=== PATIENT | female | born 1970 | race American Indian/Alaskan Native ===

== ENCOUNTER 2016-11-03 13:13 | Inpatient (IN) | payer OTHER ==
--- NOTE | 2016-11-03 16:25 | Consultation ---
History of Present Illness Consult date: 11/03/16 Requesting physician: JAYLEN CHRISTIAN Consult reason: other (pulmonary embolism) History of present illness: The patient is a 46 year old female with a history of hypertension who was referred for direct admission after chest CT this afternoon revealed PE. She states that she underwent a hysterectomy for fibroids 10/07/16. She went to her regulatory affairs coordinator's office today for her follow up appointment and reported that she had been experiencing shortness of breath on exertion for the past one week and well as right sided back pain upon deep inspiration. She was sent to [facility] for a chest CT which revealed PE. She denies any chest pain, palpitations or leg swelling. She states that since surgery she has been limited to the second floor of her house but that she does walk around upstairs regularly. No previous history of known family history of blood clots. Past History Past Medical History: hypertension Past Surgical History: hysterectomy (10/07/16), Other (foot surgery) Social history: . denies: smoking, alcohol abuse, prescription drug abuse Family history: no significant family history Medications and Allergies Allergies Allergy/AdvReac Type Severity Reaction Status Date / Time No Known Allergies Allergy Unverified 09/28/16 17:02 Home Medications Medication Instructions Recorded Confirmed Last Taken Type Lisinopril/Hydrochlorothiazide 1 tab PO QDAY 09/28/16 10/06/16 10/06/16 10:30 History [Zestoretic 20-25 mg] Docusate Sodium [Colace] 100 mg PO BID PRN #60 capsule 10/07/16 Unknown Rx Ferrous Sulfate [Feosol 325 MG tab] 325 mg PO BID #60 tablet 10/07/16 Unknown Rx Ibuprofen [Motrin] 800 mg PO Q8HR PRN #60 tablet 10/07/16 Unknown Rx Oxycodone HCl/Acetaminophen 1 each PO Q6HR PRN #45 tablet 10/07/16 Unknown Rx [Percocet 7.5/325 mg] Review of Systems Constitutional: no fever, no chills Ears, nose, mouth and throat: no nasal congestion, no nasal discharge, no sinus pressure Cardiovascular: shortness of breath, dyspnea on exertion, no chest pain, no orthopnea, no palpitations Respiratory: cough, shortness of breath, dyspnea on exertion, no congestion, no wheezing Gastrointestinal: no abdominal pain, no vomiting, no diarrhea Genitourinary Female: no dysuria, no urgency Musculoskeletal: no neck stiffness, no neck pain, no myalgias Integumentary: no rash, no pruritis Neurological: no parathesias, no numbness, no tingling, no headaches Endocrine: no cold intolerance, no heat intolerance Hematologic/Lymphatic: no easy bruising, no easy bleeding Allergic/Immunologic: no urticaria, no wheezing Physical Examination Last Vital Signs Temp 98.1 F 11/03/16 16:00 Pulse 94 Resp 20 BP 132/113 Pulse Ox 100 General appearance: no acute distress HEENT: Positive: PERRL, Normocephaly, Mucus Membranes Moist Neck: Positive: neck supple, trachea midline Cardiac: Positive: Reg Rate and Rhythm, S1/S2 Lungs: Positive: clear to auscultation Neuro: Positive: Grossly Intact Abdomen: Positive: Soft, Active Bowel Sounds. Negative: Tender Skin: Positive: Clear. Negative: Rash Extremities: Present: normal. Absent: edema Results - Imaging and Cardiology Echo: pending EKG: pending EKG interpretations - Telemetry EKG Rhythm: Sinus Rhythm Assessment and Plan Acute PE per preliminary CT report await radiologists report hemodynamically stable obtain CBC, CMP, cardiac enzymes obtain EKG, echo, LE venous Dopplers Hypertension The patient has been seen in conjunction with Dr. Slade who agrees with the assessment and plan of care.
[2016-11-03] MEDS ORDERED: HEPARIN 10,000 UNITS/10 ML IV ONE (17:00)
--- NOTE | 2016-11-03 17:04 | Consultation ---
History of Present Illness Consult date: 11/03/16 Reason for consult: pulmonary embolism History of present illness: I'm called to evaluate the case of a 46 year old female with a history of hypertension who was referred for direct admission after chest CT this afternoon reportedly revealed PE. The patient and 's states that she underwent a hysterectomy for fibroids 10/06/16. She went to her parquetry floor layer's office today for her follow up appointment and reported that she had been experiencing shortness of breath on exertion for the past one week (mostly on exertion). She also complained of right sided back. His pain. No coughing reported. No chest pain reported. She denies any hemoptysis. Also incidental history of fever episode last Monday of 101F apparently self-limited. She was just admitted to the ICU and I was notified that she was here for consultation. No additional information on record other than cardiology evaluation. No report from the CT scan. My review the scan there appears to be a filling defect on the right pulmonary artery. This also what appears to be a wedge shape infiltrate in the right posterolateral costal area, suspicious for sign. I also see what appears to be an incidental mass in the left breast. Again, report is not available. Past History Past Medical History: hypertension. denies: acute [place], CAD, cancer, DVT, pulmonary embolism Past Surgical History: hysterectomy (10/07/16), Other (foot surgery) Social history: . denies: smoking, alcohol abuse, prescription drug abuse Family history: no significant family history, other (no history of clots) Medications and Allergies Allergies Allergy/AdvReac Type Severity Reaction Status Date / Time No Known Allergies Allergy Unverified 09/28/16 17:02 Home Medications Medication Instructions Recorded Confirmed Last Taken Type Lisinopril/Hydrochlorothiazide 1 tab PO QDAY 09/28/16 10/06/16 10/06/16 10:30 History [Zestoretic 20-25 mg] Docusate Sodium [Colace] 100 mg PO BID PRN #60 capsule 10/07/16 Unknown Rx Ferrous Sulfate [Feosol 325 MG tab] 325 mg PO BID #60 tablet 10/07/16 Unknown Rx Ibuprofen [Motrin] 800 mg PO Q8HR PRN #60 tablet 10/07/16 Unknown Rx Oxycodone HCl/Acetaminophen 1 each PO Q6HR PRN #45 tablet 10/07/16 Unknown Rx [Percocet 7.5/325 mg] Active Meds: Active Medications Influenza Virus Vaccine Quadrival (Fluarix Quad 2336-2932(36 Mos+)) 60 mcg IM .ONCE ONE Stop: 11/04/16 12:01 Review of Systems Constitutional: fever, fatigue, no weight loss, no chills, no sweats, no night sweats, no weakness Ears, nose, mouth and throat: no epistaxis, no bleeding gums Breasts: deferred Cardiovascular: shortness of breath, dyspnea on exertion, no chest pain, no orthopnea, no palpitations, no rapid/irregular heart beat, no edema, no syncope , no paroxysmal nocturnal dyspnea, no phlebitis, no leg edema Respiratory: cough, shortness of breath, dyspnea on exertion, no hemoptysis Gastrointestinal: no abdominal pain, no nausea, no vomiting, no diarrhea, no hematemesis, no melena, no hematochezia Menstruation: other (denies bleeding after surgery) Neurological: no head injury, no transient paralysis, no paralysis, no weakness , no parathesias, no numbness, no convulsions Hematologic/Lymphatic: no easy bruising, no easy bleeding, no lymphadenopathy, no thrombophilia Physical Examination Vital signs: Vital Signs Pulse Resp 104 H 19 11/03/16 15:59 11/03/16 15:59 General appearance: no acute distress, alert Eyes: non-icteric ENT: oropharynx moist Neck: supple Effort: normal Ascultation: Bilateral: clear Percussion: Bilateral: not dull Tactile fremitus: Bilateral: normal Cardiovascular: regular rate and rhythm Gastrointestinal: normoactive bowel sounds, non-distended Integumentary: normal Extremities: no cyanosis, other (Homans sign negative bilaterally) Musculoskeletal: no deformities normal mental status, non-focal exam mood appropriate, affect normal Results - Diagnostic Findings CT scan - chest: image reviewed Assessment and Plan Pulmonary embolism right pulmonary artery. Appears to be hemodynamically stable with bedside oximetry of her percent on nasal cannula Post hysterectomy Question about left breast mass Recommendations CBC PT/PTT INR Cardiovascular markers profile including troponins, BNP Once confirmation report on record, recommend initiating standard anticoagulation for PE. This could be with either heparin infusion per protocol or Lovenox 1 mg/kg every 12 hours
--- NOTE | 2016-11-03 17:31 | History and Physical Report ---
History of Present Illness Date of examination: 11/03/16 Date of admission: 11/03/16 15:24 Chief complaint: right chest pain History of present illness: 46y/o s/p a total abdominal hysterectomy and bilateral salpingoophorectomy 10/06/2016 presents to the office for her postoperative visit with the complaint of persistent right sided chest pain and shortness of breath. The patient has also been experiencing intermittent nausea. She denies any vaginal bleeding. She reports adequate pain control. The patient was sent for CT imaging of the chest with findings pulmonary emboli. Past History Past Medical History: hypertension, other (obesity) Past Surgical History: other (SARAH/BSO) Social history: - Obstetrical History : 4 Para: 3 Hx # Term Pregnancies: 3 Number of Pregnancies: 0 Spontaneous Abortions: 1 Induced : 0 Number of Living Children: 3 Medications and Allergies Allergies Allergy/AdvReac Type Severity Reaction Status Date / Time No Known Allergies Allergy Unverified 09/28/16 17:02 Home Medications Medication Instructions Recorded Confirmed Last Taken Type Lisinopril/Hydrochlorothiazide 10 tab PO QDAY 09/28/16 11/03/16 11/03/16 History [Zestoretic 20-25 mg] Active Meds: Active Medications Heparin Sodium/Sodium Chloride (Heparin/ 0.45% Nacl-25,000 Unit/500 Ml) 500 mls @ 26 mls/hr IV TITR ESTER; 1,300 UNITS/HR PRN Reason: Protocol Influenza Virus Vaccine Quadrival (Fluarix Quad [id number](36 Mos+)) 60 mcg IM .ONCE ONE Stop: 11/04/16 12:01 Review of Systems Constitutional: fatigue Cardiovascular: chest pain Respiratory: shortness of breath, dyspnea on exertion Genitourinary: no vaginal bleeding, no vaginal discharge - Vital Signs Vital signs: Vital Signs Pulse Resp 104 H 19 11/03/16 15:59 11/03/16 15:59 Temp Pulse Resp BP Pulse Ox 98.1 F 86 21 128/86 100 11/03/16 16:00 11/03/16 17:00 11/03/16 17:00 11/03/16 17:00 11/03/16 17:00 - Physical Exam Breasts: Positive: deferred Abdomen: Positive: normal appearance, soft Results All other labs normal. Assessment and Plan - Patient Problems (1) Pulmonary emboli Current Visit: Yes Status: Acute Plan to address problem: admit for anticoagulation therapy (2) Dyspnea on exertion Current Visit: Yes Status: Acute
[2016-11-03 19:18] LABS: Basophils % (Auto) 0.5 % (0.0-1.8); Eosinophils % (Auto) 2.7 % (0.0-4.3); Hemoglobin 8.5 gm/dl (10.1-14.3); Mean Corpuscular HGB Conc 31 % (30-34); Mean Corpuscular Volume 75 fl (79-97); Platelet Count 311 K/mm3 (140-440); Red Blood Count 3.61 M/mm3 (3.65-5.03); Red Cell Distribution Width 17.4 % (13.2-15.2); White Blood Count 5.3 K/mm3 (4.5-11.0)
[2016-11-03 19:24] LABS: Mean Corpuscular Hemoglobin 24 pg (28-32)
[2016-11-03 19:28] LABS: INR 1.02 (0.87-1.13)
[2016-11-03 19:29] LABS: Partial Thromboplastin Time 28.1 Sec. (24.2-36.6)
[2016-11-03 19:43] LABS: Alanine Aminotransferase 31 units/L (7-56); Albumin 3.4 g/dL (3.9-5); Albumin/Globulin Ratio 0.7 %; Alkaline Phosphatase 213 units/L (35-129); Anion Gap 18 mmol/L; Bilirubin,Total 0.3 mg/dL (0.1-1.2); Blood Urea Nitrogen 14 mg/dL (7-17); Calcium 8.9 mg/dL (8.4-10.2); Carbon Dioxide 30 mmol/L (22-30); Creatine Kinase 74 units/L (30-135); Glucose 105 mg/dL (65-100); Sodium 141 mmol/L (137-145)
[2016-11-03 19:51] LABS: Creatine Kinase MB < 1.0 ng/mL (0.0-4.0)
[2016-11-03 19:53] LABS: Potassium 2.8 mmol/L (3.6-5.0)
[2016-11-03] MEDS: HEPARIN/ 0.45% NACL-25,000 UNIT/500 ML 500 ML IV SCH (20:02)
[2016-11-03] MEDS ORDERED: COUMADIN PO SCH (21:00)
[2016-11-03] MEDS: K-DUR PO SCH (21:25)
[2016-11-03 21:52] LABS: Alanine Aminotransferase 30 units/L (7-56); Albumin 3.3 g/dL (3.9-5); Albumin/Globulin Ratio 0.8 %; Alkaline Phosphatase 205 units/L (35-129); Bilirubin,Total 0.2 mg/dL (0.1-1.2); Blood Urea Nitrogen 14 mg/dL (7-17); Calcium 8.7 mg/dL (8.4-10.2); Carbon Dioxide 29 mmol/L (22-30); Chloride 96.8 mmol/L (98-107); Glucose 97 mg/dL (65-100); Potassium 3.2 mmol/L (3.6-5.0); Sodium 142 mmol/L (137-145); Total Protein 7.4 g/dL (6.3-8.2)
[2016-11-03 21:58] LABS: Anion Gap 19 mmol/L
[2016-11-03] MEDS: HCTZ PO SCH (22:00)
[2016-11-03] MEDS: ZESTRIL PO SCH (22:00)
--- NOTE | 2016-11-03 23:05 | Admit Criteria Form ---
Admission Criteria Documentation: PULMONARY EMBOLISM Clinical Indications for Admission to Inpatient Care (Place 'X' for any and all applicable criteria): Admission is indicated by ANY ONE of the following 1,2,3,4,5 [ ]I. Onset of hypoxia [ ]II. Hemodynamic instability 5 [ ]III. Massive pulmonary embolism (eg, acute embolism causing sustained hypotension, pulselessness, or bradycardia)5 [ ]IV. Need for IV narcotics (eg, to treat dyspnea) [ ]V. Current use of home oxygen therapy [ ]. Active bleeding [ ]VII. Recent surgery [ ]VIII. Active peptic ulcer disease [ ]IX. Documented extensive thrombosis (eg, clot in vena cava or above iliofemoral bifurcation) [ ]X. Embolism while on anticoagulation [ ]XI. 6 [ X]XII. Appropriate monitoring and therapy cannot be provided in home or outpatient setting. [ ]XIII. Systemic or catheter-directed thrombolysis 5,7 [ ]XIV. Catheter embolectomy and fragmentation 6 [ ]XV. Vena cava filter placement5 [ ]XVI. Severely diminished cardiopulmonary reserve (eg, cor pulmonale, pulmonary hypertension) [ ]XVII. Severe renal failure (eg, GFR less than 30 mL/min/1.73m2 (0.5 mL/sec/ 1.73m2)) [ ]XVIII.Right ventricular dysfunction (eg, by echocardiogram) 6,11 [ ]XIX. Positive cardiac biomarker (eg, troponin T or I > 0.1 ng/mL (mcg/L), highly sensitive troponin I assay greater than 0.014 ng/mL (mcg/L), BNP or NT proBNP > assay threshold)5,8,9 [ ]XX. Known clotting abn or def (eg, liver disease, antithrombin III, protein C, or protein S abnormality) [ ]XXI. History of heparin-induced thrombocytopenia [X ]XXII. Inpatient admission required rather than observation care (Also use Pulmonary Embolism: Observation Care guideline as appropriate) because of ANY ONE of the following: [ ] a) Significant autoimmune (thrombocytopenia) or coagulopathic reaction occurs in response to anticoagulation [X ] b) Respiratory symptoms (eg, tachypnea, dyspnea) that are severe or persistent [ ] c) Other condition, treatment, or monitoring requiring inpatient admission Extended stay beyond goal length of stay may be needed for 3,28 [ ]a) Hemorrhage or recent surgery [ ]b) Recurrent thromboembolism [ ]c) Persistent hypoxemia [ ]d) Heparin-induced thrombocytopenia The original [facility] [employer] content created by [facility] has been revised. The portions of the content which have been revised are identified through the use of italic text or in bold, and [facility] has neither reviewed nor approved the modified material. All other unmodified content is copyright [facility] [employer]. Please see references footnoted in the original [facility] edition 2016 Admission Criteria Met: Yes
[2016-11-04 02:51] LABS: INR 1.12 (0.87-1.13)
[2016-11-04] MEDS: K-DUR PO SCH ×2 (03:32→07:06)
[2016-11-04] MEDS ORDERED: K-DUR PO ONE ×3 (06:46→12:47)
[2016-11-04 07:48] LABS: Total Iron Binding Capacity 298.2 mcg/dL (250-450)
--- NOTE | 2016-11-04 07:53 | History and Physical Report ---
CHIEF COMPLAINT: Increasing shortness of breath for one week. HISTORY OF PRESENT ILLNESS: A 46-year-old female with history of hypertension, went to director food safety's office for postoperative checkup status post hysterectomy. The patient had a hysterectomy on 10/07/2016. During the followup, she complained to the SAIL CUTTER, Dr. Paula Noyola for shortness of breath on exertion for the past one week and right-sided back pain upon deep inspiration. She was asked to get a chest x-ray, which showed acute pulmonary embolism because of which the patient was admitted directly to the ICU initially and from then onto remote telemetry. The patient has been short of breath on exertion for the last one week. The patient not on any DVT prophylaxis. Did not need any DVT prophylaxis postop actually, she was walking well. PAST MEDICAL HISTORY: Significant for, 1. Hypertension. 2. Anemia. 3. Chronic pain. CURRENT MEDICATIONS: Lisinopril 20/25 daily, ferrous sulfate 325 mg twice a day, Motrin 800 mg 3 times a day, and Percocet 7.5/325 q.6 hours p.r.n. PAST SURGICAL HISTORY: Hysterectomy on 10/07/2016, foot surgery in the past. SOCIAL HISTORY: . Denies smoking, no alcohol abuse, prescription drug abuse. FAMILY HISTORY: No hypertension, no diabetes. REVIEW OF SYSTEMS: CONSTITUTIONAL: No weight loss, no weight gain. No fever, no chills. HEENT: No sore throat. No postnasal drip. CARDIOVASCULAR AND RESPIRATORY: As mentioned in history of present illness, shortness of breath on exertion and right infrascapular pain on deep inspiration. No palpitations. No chest pain. GASTROINTESTINAL: No nausea, no vomiting, no diarrhea. GENITOURINARY: No dysuria, no flank pain. MUSCULOSKELETAL: No joint pains. CENTRAL NERVOUS SYSTEM: No syncope, no seizures. PSYCHIATRIC: No depression. NEUROLOGIC: No suicidal or homicidal ideation. SKIN: No rashes. PHYSICAL EXAMINATION: GENERAL: Middle-aged female, well-developed and well-nourished, in no acute distress. VITAL SIGNS: Blood pressure is 119/80, temperature is 98.7, pulse is 79, respirations are 20. HEENT: Unremarkable. Pupils equal and reactive. NECK: Supple, no lymphadenopathy, no thyromegaly. LUNGS: Clear to auscultation and percussion. Good air entry. CARDIOVASCULAR: S1, S2 heard. No gallop, no murmur, no rub. Apical impulse in left fifth intercostal space and midclavicular line. ABDOMEN: Soft and benign. No hepatosplenomegaly. No guarding, no rigidity. Hernial orifices are normal. EXTREMITIES: Good pedal pulses. No pedal edema. CENTRAL NERVOUS SYSTEM: Alert and oriented x4, nonfocal exam. SKIN: Normal. LABORATORY DATA: White count is 5300, H and H is 8.5 and 27.0, MCV is 75, MCH is 24, potassium is 2.8, glucose is 105, alkaline phosphatase is 213. Doppler studies of her extremities, no DVT. CT of the chest shows acute pulmonary embolism. Report not available. . ASSESSMENT AND PLAN: 1. Acute pulmonary embolism. The patient was started on IV heparin and also Coumadin. 2. Bridge over to Coumadin. 3. Hypokalemia, supplemented. 4. Anemia secondary to iron deficiency. The patient already on iron. MCH an MCV low. Serum iron ordered. 5. Hypertension. Continue lisinopril. 6. Deep venous thrombosis prophylaxis. The patient transferred from ICU to the remote [facility] on the 2nd floor because the patient is stable. JOB# [id number] ARIC/ROBERT BAZZI
--- NOTE | 2016-11-04 09:16 | Progress Note ---
Addendum entered and electronically signed by TIP AYOUB MD 11/04/16 11: 48: echo normal lv function, normal rv size and function mild tr and normal rvsp, in discussion with dr. johnson, change to elquis 10mg bid, start this pm and out patient workup for breast mass. pt is chest pain free and feeling better, may discharge in am if stable. Original Note: Assessment and Plan Acute PE per preliminary CT report await official report await echo findings hemodynamically stable, troponin negative LE venous Dopplers negative for DVT continue heparin gtt, will start Eliquis tomorrow hematology consult for hypercoaguable workup Hypokalemia Anemia Hypertension stable continue lisinopril/HCTZ The patient has been seen in conjunction with Dr. Ayoub who agrees with the assessment and plan of care. Subjective Date of service: 11/04/16 Principal diagnosis: acute PE Interval history: The patient is resting comfortably in bed. Shortness of breath improved. Objective Last Vital Signs Temp 98.7 F 11/04/16 01:14 Pulse 81 11/04/16 06:30 Resp 18 11/04/16 06:30 BP 110/74 11/04/16 06:30 Pulse Ox 100 11/04/16 01:14 - Physical Examination General: No Apparent Distress HEENT: Positive: PERRL, Normocephaly, Mucus Membranes Moist Neck: Positive: neck supple, trachea midline Cardiac: Positive: Reg Rate and Rhythm, S1/S2 Lungs: Positive: clear to auscultation Neuro: Positive: Grossly Intact Abdomen: Positive: Soft, Active Bowel Sounds. Negative: Tender Skin: Positive: Clear. Negative: Rash Extremities: Present: normal. Absent: edema - Labs and Meds Cardiac Enzymes 11/03/16 11/03/16 Range/Units 17:44 21:17 AST 18 20 (5-40) units/L CK-MB (CK-2) < 1.0 (0.0-4.0) ng/mL Coagulation 11/03/16 11/04/16 Range/Units 17:44 02:31 PT 13.3 14.3 (12.2-14.9) Sec. INR 1.02 1.12 (0.87-1.13) APTT 28.1 (24.2-36.6) Sec. CBC 11/03/16 Range/Units 17:44 WBC 5.3 (4.5-11.0) K/mm3 RBC 3.61 L (3.65-5.03) M/mm3 Hgb 8.5 L (10.1-14.3) gm/dl Hct 27.0 L (30.3-42.9) % Plt Count 311 (140-440) K/mm3 Lymph # 1.6 (1.2-5.4) K/mm3 [place] # 0.4 (0.0-0.8) K/mm3 Eos # 0.1 (0.0-0.4) K/mm3 Baso # 0.0 (0.0-0.1) K/mm3 Comprehensive Metabolic Panel 11/03/16 11/03/16 Range/Units 17:44 21:17 Sodium 141 142 (137-145) mmol/L Potassium 2.8 L* 3.2 L (3.6-5.0) mmol/L Chloride 96.0 L 96.8 L (98-107) mmol/L Carbon Dioxide 30 29 (22-30) mmol/L BUN 14 14 (7-17) mg/dL Creatinine 1.0 1.0 (0.7-1.2) mg/dL Glucose 105 H 97 (65-100) mg/dL Calcium 8.9 8.7 (8.4-10.2) mg/dL AST 18 20 (5-40) units/L ALT 31 30 (7-56) units/L Alkaline Phosphatase 213 H 205 H (35-129) units/L Total Protein 8.0 7.4 (6.3-8.2) g/dL Albumin 3.4 L 3.3 L (3.9-5) g/dL - Imaging and Cardiology EKG: image reviewed Echo: pending
--- NOTE | 2016-11-04 09:19 | Hem/Onc Consultation ---
History of Present Illness - Reason for Consult Consult date: 11/04/16 - History of Present Illness Patient is a 46-year-old female who recently underwent hysterectomy for fibroids. In the last week or so patient started having worsening shortness of breath and was seen by her CAR HOPPER and a CT of the chest was performed where she was found to have pulmonary emboli. I do not have the actual report. He was also a possibility of left-sided breast mass. Patient is currently on heparin to be switched to Coumadin. Patient denies any previous history of DVTs. Does not smoke. Does not take any hormones. Denies any family history of thrombosis. 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 Has however not gone back to work since her hysterectomy. Patient's Doppler of the lower external he was done which was unremarkable. She is feeling better. Past History Past Medical History: hypertension. denies: acute [place], CAD, cancer, DVT, pulmonary embolism Past Surgical History: hysterectomy (10/07/16), Other (foot surgery) Social history: Family history: no significant family history, other (no history of clots) Medications and Allergies Allergies Allergy/AdvReac Type Severity Reaction Status Date / Time No Known Allergies Allergy Unverified 09/28/16 17:02 Home Medications Medication Instructions Recorded Confirmed Last Taken Type Lisinopril/Hydrochlorothiazide 10 tab PO QDAY 09/28/16 11/03/16 11/03/16 History [Zestoretic 20-25 mg] Active Meds: Active Medications Hydrochlorothiazide (Hctz) 25 mg PO QDAY [facility] Last Admin: 11/03/16 22:00 Dose: Not Given Heparin Sodium/Sodium Chloride (Heparin/ 0.45% Nacl-25,000 Unit/500 Ml) 500 mls @ 26 mls/hr IV TITR ESTER; 1,300 UNITS/HR PRN Reason: Protocol Last Admin: 11/03/16 20:02 Dose: 26 mls/hr Influenza Virus Vaccine Quadrival (Fluarix Quad [id number](36 Mos+)) 60 mcg IM .ONCE ONE Stop: 11/04/16 12:01 Lisinopril (Zestril) 20 mg PO QDAY [facility] Last Admin: 11/03/16 22:00 Dose: Not Given Exam - Constitutional Vitals: Last Vital Signs Temp 98.7 F 11/04/16 01:14 Pulse 81 01/27/17 06:30 Resp 18 11/04/16 06:30 BP 110/74 11/04/16 06:30 Pulse Ox 100 11/04/16 01:14 General appearance: mild distress Performance status: 3-limited selfcare - Neck Neck: supple - Respiratory Respiratory: bilateral: diminished - Breasts Breasts: bilateral: other (no masses noted) - Cardiovascular Rhythm: regular Extremities: No edema - Gastrointestinal General gastrointestinal: Present: soft - Musculoskeletal Musculoskeletal: generalized weakness Results - Labs lab Results: Laboratory Results - last 24 hr 11/03/16 11/03/16 11/03/16 17:44 17:44 17:44 WBC 5.3 RBC 3.61 L Hgb 8.5 L Hct 27.0 L MCV 75 L MCH 24 L MCHC 31 RDW 17.4 H Plt Count 311 Lymph % (Auto) 29.8 [place] % (Auto) 7.2 Eos % (Auto) 2.7 Baso % (Auto) 0.5 Lymph # 1.6 [place] # 0.4 Eos # 0.1 Baso # 0.0 Seg Neutrophils % 59.8 Seg Neutrophils # 3.2 PT 13.3 INR 1.02 APTT 28.1 Heparin Anti-Xa Level Sodium 141 Potassium 2.8 L* Chloride 96.0 L Carbon Dioxide 30 Anion Gap 18 BUN 14 Creatinine 1.0 Estimated GFR > 60 BUN/Creatinine Ratio 14.00 Glucose 105 H Calcium 8.9 Iron TIBC % Saturation Transferrin Total Bilirubin 0.3 AST 18 ALT 31 Alkaline Phosphatase 213 H Total Creatine Kinase 74 CK-MB (CK-2) < 1.0 CK-MB (CK-2) Rel Index 1.3 Troponin T < 0.010 Total Protein 8.0 Albumin 3.4 L Albumin/Globulin Ratio 0.7 11/03/16 11/04/16 11/04/16 21:17 02:31 07:31 WBC RBC Hgb Hct MCV MCH MCHC RDW Plt Count Lymph % (Auto) [place] % (Auto) Eos % (Auto) Baso % (Auto) Lymph # [place] # Eos # Baso # Seg Neutrophils % Seg Neutrophils # PT 14.3 INR 1.12 APTT Heparin Anti-Xa Level 0.54 Sodium 142 Potassium 3.2 L Chloride 96.8 L Carbon Dioxide 29 Anion Gap 19 BUN 14 Creatinine 1.0 Estimated GFR > 60 BUN/Creatinine Ratio 14.00 Glucose 97 Calcium 8.7 Iron 24 L TIBC 298.20 % Saturation 8.05 Transferrin 213 Total Bilirubin 0.2 AST 20 ALT 30 Alkaline Phosphatase 205 H Total Creatine Kinase CK-MB (CK-2) CK-MB (CK-2) Rel Index Troponin T Total Protein 7.4 Albumin 3.3 L Albumin/Globulin Ratio 0.8 Assessment and Plan At this time, will order a hypercoagulable workup. Agree with Coumadin. May be able to switch to the newer agents possibly eliquis as outpatient. I do not feel any breast mass but once she is outpatient, we will be closely monitoring it possibly evaluating her with ultrasound etc. We will see her in my office in about 2 weeks. Patient was given my business card.
--- NOTE | 2016-11-04 09:41 | Cat Scan Report ---
CT OF THE CHEST WITH IV CONTRAST: HISTORY: Right chest pain. FINDINGS: There are multiple bilateral central and peripheral pulmonary emboli. There are multiple peripheral wedge-shaped opacities in the right mid and lower lung zone. There is posterior right pleural calcification. There is a soft tissue mass in the left breast measuring 1.9 x 2.6 cm. On the images which include a portion of the upper abdomen, there are multiple small hyperdense areas within the gallbladder which is incompletely imaged. IMPRESSION: 1. Multiple bilateral pulmonary emboli with multiple right pulmonary infarcts, as detailed above. 2. Left breast mass measuring 1.9 x 2.6 cm. Please correlate with bilateral mammogram and left breast ultrasound unless this has been performed recently. 3. Multiple gallbladder opacities, partially imaged on this CT of the chest. Correlation with gallbladder ultrasound is recommended. COMMENT: These findings were telephoned to the patient's referring physician, Dr. Noyola, at 2:15 PM on November 03, 2016.
--- NOTE | 2016-11-04 09:49 | Progress Note ---
Assessment and Plan - Patient Problems (1) Pulmonary emboli Current Visit: Yes Status: Acute Plan to address problem: clinical improvement discharge of patient will be managed by utility appraiser patient aware she will require anticoagulation as an outpatient (2) Dyspnea on exertion Current Visit: Yes Status: Acute Subjective - Subjective Date of service: 11/04/16 Principal diagnosis: acute PE Interval history: Patient states feeling much better. Denies any SOB today. Tolerating regular diet. Patient currently receiving IV heparin and po coumadin for anticoagulation. She has been transferred to telemetry unit. Patient reports: appetite normal, voiding normally, pain well controlled Objective - Vital Signs Latest vital signs: Vital Signs Temp Pulse Pulse Pulse Resp BP BP 11/04/16 06:30 81 18 110/74 11/04/16 01:14 98.7 F 85 20 108/72 11/03/16 22:00 79 18 119/80 11/03/16 21:28 98.7 F 79 20 119/80 11/03/16 20:00 97.8 F 90 21 109/73 11/03/16 19:12 92 H 17 133/87 11/03/16 19:00 92 H 25 H 133/87 11/03/16 18:00 87 18 127/85 11/03/16 17:00 86 22 128/86 11/03/16 16:54 93 H 24 131/113 11/03/16 16:00 98.1 F 97 H 22 131/113 11/03/16 15:59 104 H 19 Pulse Ox 11/04/16 06:30 11/04/16 01:14 100 11/03/16 22:00 11/03/16 21:28 98 11/03/16 20:00 100 11/03/16 19:12 100 11/03/16 19:00 100 11/03/16 18:00 100 11/03/16 17:00 100 11/03/16 16:54 100 11/03/16 16:00 11/03/16 15:59 Intake and Output 11/03/16 11/04/16 11/04/16 22:59 06:59 14:59 Intake Total 290 233 Balance 290 233 Intake: IV 233 Heparin/ 0.45% NaCl-25, 233 000 Unit/500 ml 500 ml @ 1,300 UNITS/HR 26 mls/hr IV TITR ESTER Rx#:[id number] Oral 290 Other: Total, Intake Amount 50 Voiding Method Toilet # Voids Void 1 # Bowel Movements 0 Weight 88.6 kg - Labs Labs: Abnormal lab results 11/03/16 11/03/16 11/03/16 Range/Units 17:44 17:44 21:17 RBC 3.61 L (3.65-5.03) M/mm3 Hgb 8.5 L (10.1-14.3) gm/dl Hct 27.0 L (30.3-42.9) % MCV 75 L (79-97) fl MCH 24 L (28-32) pg RDW 17.4 H (13.2-15.2) % Potassium 2.8 L* 3.2 L (3.6-5.0) mmol/L Chloride 96.0 L 96.8 L (98-107) mmol/L Glucose 105 H (65-100) mg/dL Iron (37-170) ug/dL Alkaline Phosphatase 213 H 205 H (35-129) units/L Albumin 3.4 L 3.3 L (3.9-5) g/dL 11/04/16 Range/Units 07:31 RBC (3.65-5.03) M/mm3 Hgb (10.1-14.3) gm/dl Hct (30.3-42.9) % MCV (79-97) fl MCH (28-32) pg RDW (13.2-15.2) % Potassium (3.6-5.0) mmol/L Chloride (98-107) mmol/L Glucose (65-100) mg/dL Iron 24 L (37-170) ug/dL Alkaline Phosphatase (35-129) units/L Albumin (3.9-5) g/dL
[2016-11-04] MEDS: ZESTRIL PO SCH (10:14)
[2016-11-04] MEDS: HCTZ PO SCH (10:14)
--- NOTE | 2016-11-04 11:02 | Echocardiography Report ---
Transthoracic Echocardiogram Indication: Pulmonary Embolus BP: 110/74 Conclusions *Global left ventricular wall motion and contractility are within normal limits. *The estimated ejection fraction is 55-60%. *The left atrium is normal in size with no visual thrombus identified. *The right ventricular global systolic function is normal. *There is no evidence of aortic regurgitation. *There is no evidence of mitral regurgitation. *There is mild tricuspid regurgitation. *The right ventricular systolic pressure is calculated at 32 mmHg. *There is no evidence of pulmonic regurgitation. Findings Left Ventricle: The left ventricular chamber size is normal. Global left ventricular wall motion and contractility are within normal limits. Global left ventricular systolic function is normal. The estimated ejection fraction is 55-60%. Normal left ventricular diastolic filling is observed. Left Atrium: The left atrium is normal in size with no visual thrombus identified. Right Ventricle: The right ventricular cavity size is normal. The right ventricular global systolic function is normal. Right Atrium: The right atrium appears normal. The interatrial septum appears normal. Aortic Valve: The aortic valve structure is normal. There is no evidence of aortic regurgitation. There is no evidence of aortic stenosis. Mitral Valve: The mitral valve leaflets appear normal. There is no evidence of mitral regurgitation. There is no evidence of mitral stenosis. Tricuspid Valve: The tricuspid valve leaflets are normal. There is mild tricuspid regurgitation. The right ventricular systolic pressure is calculated at 32 mmHg. There is no tricuspid stenosis. Pulmonic Valve: The pulmonic valve appears normal. There is no evidence of pulmonic regurgitation. There is no pulmonic stenosis. Pericardium: There is no pericardial effusion. Aorta: There is no dilatation of the ascending aorta. There is no dilatation of the aortic arch. Venous: The inferior vena cava appears normal in size. Measurements Chambers MM Name Value Normal Range Ao root diameter (MM) 3 cm (2 - 3.7) LA dimension (AP) MM 3.7 cm (1.9 - 4) LA:Ao ratio (MM) 1.23 ratio - AV cusp separation (MM) 1.6 cm (1.5 - 2.6) Chambers 2D Name Value Normal Range RVIDd (AP) 2D 4.03 cm (0.9 - 2.6) IVSd (2D) 1.07 cm (0.6 - 1.1) LVPWd (2D) 1.02 cm (0.6 - 1.1) IVS:LVPW ratio (2D) 1.05 ratio - LVIDd (2D) 4.14 cm (3.7 - 5.6) LVIDs (2D) 2.72 cm (2 - 3.8) LV FS (Teichholz) (2D) 34.3 % - LV FS (cube) (2D) 34.3 % - EF Teichholz (2D) 63.8 % - LA dimension (AP) 2D 3.4 cm (1.9 - 4) Volumes/Mass Name Value Normal Range LA ESV SP 4CH (MOD) 44 ml - LA ESV SP 2CH (MOD) 48 ml - LA ESV BP (MOD) 49 ml - LA ESV BP (MOD) index 26.2 ml/m2 - LV EDV SP 4CH (MOD) 62 ml - LV ESV SP 4CH (MOD) 24 ml - EF SP 4CH (MOD) 61 % - LV EDV SP 2CH (MOD) 56 ml - LV ESV SP 2CH (MOD) 24 ml - EF SP 2CH (MOD) 57 % - LV EDV BP 59 ml - LV ESV BP 24 ml - BP EF (MOD) 59 % - Diastolic/Systolic Function Name Value Normal Range MV E-wave Vmax 0.63 m/sec - MV deceleration time 180 msec - MV A-wave Vmax 0.55 m/sec - MV E:A ratio 1.1 ratio - LV septal e' Vmax 0.07 m/sec - LV lateral e' Vmax 0.16 m/sec - LV E:e' septal ratio 8.5 ratio - LV E:e' lateral ratio 4 ratio - Aortic Valve Name Value Normal Range AV VTI 27.7 cm - AV mean gradient 5 mmHg - LVOT diameter 2 cm - LVOT VTI 19.7 cm - LVOT mean gradient 2 mmHg - SV LVOT 62 ml - YESICA (continuity VTI) 2.23 cm2 - Mitral Valve Name Value Normal Range MV PHT 42 msec - MVA (PHT) 5.24 cm2 - Tricuspid Valve Name Value Normal Range TR Vmax 2.7 m/sec - TR peak gradient 29 mmHg - RAP 3 mmHg - RVSP 32 mmHg - Pulmonic Valve/Qp:Qs Name Value Normal Range PV Vmax 0.93 m/sec - PV peak gradient 3 mmHg - DE end-diastolic Vmax 1.33 m/sec - PV acceleration time 116 msec -
[2016-11-04] MEDS ORDERED: FLUARIX QUAD 2016-2017(36 MOS+) IM ONE (12:00)
--- NOTE | 2016-11-04 13:31 | Vascular Lab Report ---
LOWER EXTREMITY VENOUS DUPLEX: REASON FOR EXAM: Pulmonary embolism. COMMENTS ON THE RIGHT: All veins visualized are freely compressible without evidence of internal echogenicity. Flow is spontaneous and phasic throughout. COMMENTS ON THE LEFT: All veins visualized are freely compressible without evidence of internal echogenicity. Flow is spontaneous and phasic throughout. IMPRESSION: No evidence of acute or chronic deep venous thrombosis in either lower extremity.
--- NOTE | 2016-11-04 14:32 | Progress Note ---
Assessment and Plan Assessment and plan: Bilateral pulmonary emboli with right-sided infarction - Patient is on heparin - We will change her to sheyla mendoza - We will monitor her overnight - If she is continued to be hemodynamically stable we will discharge her tomorrow History Interval history: Patient was seen and divided this morning, patient denied any shortness of breath or chest pain. Hospitalist Physical - Physical exam Narrative exam: Not in cardiopulmonary distress. The patient appeared well nourished and normally developed. Vital signs as documented. Head exam is unremarkable. No scleral icterus . Neck is without jugular venous distension, thyromegaly, or carotid bruits. Lungs are clear to auscultation. Cardiac exam reveals regular rate and Rhythm. First and second heart sounds normal. No murmurs, rubs or gallops. Extremities are nonedematous and both femoral and pedal pulses are normal. BIOMEDICAL ENGINEERING SUPERVISOR: Alert and oriented 3. No focal weakness. - Constitutional Vitals: Temp Pulse Resp BP Pulse Ox 97.9 F 89 18 116/74 100 11/04/16 10:16 11/04/16 10:16 11/04/16 10:16 11/04/16 10:16 11/04/16 10:16 General appearance: Present: no acute distress Results - Labs CBC & Chem 7: 11/03/16 17:44 11/03/16 21:17 Labs: Laboratory Last Values WBC 5.3 K/mm3 (4.5-11.0) 11/03/16 17:44 RBC 3.61 M/mm3 (3.65-5.03) L 11/03/16 17:44 Hgb 8.5 gm/dl (10.1-14.3) L 11/03/16 17:44 Hct 27.0 % (30.3-42.9) L 11/03/16 17:44 MCV 75 fl (79-97) L 11/03/16 17:44 MCH 24 pg (28-32) L 11/03/16 17:44 MCHC 31 % (30-34) 11/03/16 17:44 RDW 17.4 % (13.2-15.2) H 11/03/16 17:44 Plt Count 311 K/mm3 (140-440) 11/03/16 17:44 Lymph % (Auto) 29.8 % (13.4-35.0) 11/03/16 17:44 [place] % (Auto) 7.2 % (0.0-7.3) 11/03/16 17:44 Eos % (Auto) 2.7 % (0.0-4.3) 11/03/16 17:44 Baso % (Auto) 0.5 % (0.0-1.8) 11/03/16 17:44 Lymph # 1.6 K/mm3 (1.2-5.4) 11/03/16 17:44 [place] # 0.4 K/mm3 (0.0-0.8) 11/03/16 17:44 Eos # 0.1 K/mm3 (0.0-0.4) 11/03/16 17:44 Baso # 0.0 K/mm3 (0.0-0.1) 11/03/16 17:44 Seg Neutrophils % 59.8 % (40.0-70.0) 11/03/16 17:44 Seg Neutrophils # 3.2 K/mm3 (1.8-7.7) 11/03/16 17:44 PT 14.3 Sec. (12.2-14.9) 11/04/16 02:31 INR 1.12 (0.87-1.13) 11/04/16 02:31 APTT 28.1 Sec. (24.2-36.6) 11/03/16 17:44 Heparin Anti-Xa Level 0.54 U.I./ml (0.3-0.7) 11/04/16 02:31 Sodium 142 mmol/L (137-145) 11/03/16 21:17 Potassium 3.2 mmol/L (3.6-5.0) L 11/03/16 21:17 Chloride 96.8 mmol/L (98-107) L 11/03/16 21:17 Carbon Dioxide 29 mmol/L (22-30) 11/03/16 21:17 Anion Gap 19 mmol/L 11/03/16 21:17 BUN 14 mg/dL (7-17) 11/03/16 21:17 Creatinine 1.0 mg/dL (0.7-1.2) 11/03/16 21:17 Estimated GFR > 60 ml/min 11/03/16 21:17 BUN/Creatinine Ratio 14.00 % 11/03/16 21: Glucose 97 mg/dL (65-100) 11/03/16 21: Calcium 8.7 mg/dL (8.4-10.2) 11/03/16 21:17 Iron 24 ug/dL (37-170) L 11/04/16 07:31 TIBC 298.20 mcg/dL (250-450) 11/04/16 07:31 % Saturation 8.05 % 11/04/16 07:31 Transferrin 213 mg/dl (192-382) 11/04/16 07:31 Total Bilirubin 0.2 mg/dL (0.1-1.2) 11/03/16 21: AST 20 units/L (5-40) 11/03/16 21: ALT 30 units/L (7-56) 11/03/16 21: Alkaline Phosphatase 205 units/L (35-129) H 11/03/16 21: Total Creatine Kinase 74 units/L (30-135) 11/03/16 17:44 CK-MB (CK-2) < 1.0 ng/mL (0.0-4.0) 11/03/16 17:44 CK-MB (CK-2) Rel Index 1.3 (0-4) 11/03/16 17:44 Troponin T < 0.010 ng/mL (0.00-0.029) 11/03/16 17:44 Total Protein 7.4 g/dL (6.3-8.2) 11/03/16 21: Albumin 3.3 g/dL (3.9-5) L 11/03/16 21:17 Albumin/Globulin Ratio 0.8 % 11/03/16 21:17
[2016-11-04] MEDS: HEPARIN/ 0.45% NACL-25,000 UNIT/500 ML 500 ML IV SCH (15:10)
[2016-11-04 17:30] LABS: Anion Gap 17 mmol/L; BUN/Creatinine Ratio 12.72; Blood Urea Nitrogen 14 mg/dL (7-17); Calcium 8.6 mg/dL (8.4-10.2); Carbon Dioxide 30 mmol/L (22-30); Chloride 97.1 mmol/L (98-107); Glucose 98 mg/dL (65-100); Potassium 3.3 mmol/L (3.6-5.0); Sodium 141 mmol/L (137-145)
[2016-11-04] MEDS: ELIQUIS PO SCH ×2 (18:00→23:17)
--- NOTE | 2016-11-04 21:08 | Progress Note ---
Assessment and Plan Pulmonary embolism. Hemodynamically stable .Echo unremarkable per cardiology, verbal report. Post hysterectomy Left breast mass. Worrisome for malignancy Recommendations Continue with anticoagulation Switch to PO agent at discretion of PCP. Hematology-oncology f/u for thrombophilic state and breast mass w/up Discussed with pt. Al questions answered Will f/u as needed Subjective Date of service: 11/04/16 Principal diagnosis: acute PE, post hysterectomy,incidental L breast mass Interval history: reports no respiratory complains. No bleeding . No breast complains. Denies family Hx/o breast cancer Objective Vital Signs - 12hr 11/04/16 11/04/16 11/04/16 10:00 10:16 16:16 Temperature 97.9 F 97.4 F L Pulse Rate [ 89 88 Right Radial] Respiratory 17 18 16 Rate Blood Pressure 116/74 108/76 [Left Arm] O2 Sat by Pulse 100 100 99 Oximetry Constitutional: no acute distress, alert Eyes: non-icteric ENT: oropharynx moist Neck: supple Effort: normal Ascultation: Bilateral: clear Percussion: Bilateral: not dull Tactile fremitus: Bilateral: normal Cardiovascular: regular rate and rhythm Gastrointestinal: normoactive bowel sounds, non-tender, non-distended Integumentary: normal Extremities: no cyanosis, other (Homans sign negative bilaterally) Neurologic: normal mental status, non-focal exam Psychiatric: mood appropriate, affect normal CBC and BMP: 11/03/16 17:44 11/04/16 15:41 ABG, PT/INR, D-dimer: PT/INR, D-dimer PT 14.3 Sec. (12.2-14.9) 11/04/16 02:31 INR 1.12 (0.87-1.13) 11/04/16 02:31 Abnormal lab findings: Abnormal Labs 11/03/16 11/03/16 11/03/16 17:44 17:44 21:17 RBC 3.61 L Hgb 8.5 L Hct 27.0 L MCV 75 L MCH 24 L RDW 17.4 H Potassium 2.8 L* 3.2 L Chloride 96.0 L 96.8 L Glucose 105 H Iron Alkaline Phosphatase 213 H 205 H Albumin 3.4 L 3.3 L 11/04/16 11/04/16 07:31 15:41 RBC Hgb Hct MCV MCH RDW Potassium 3.3 L Chloride 97.1 L Glucose Iron 24 L Alkaline Phosphatase Albumin
[2016-11-05 03:09] LABS: Basophils % (Auto) 0.6 % (0.0-1.8); Eosinophils % (Auto) 5.4 % (0.0-4.3); Hematocrit 25.4 % (30.3-42.9); Mean Corpuscular HGB Conc 31 % (30-34); Mean Corpuscular Volume 75 fl (79-97); Platelet Count 277 K/mm3 (140-440); Red Blood Count 3.38 M/mm3 (3.65-5.03); Red Cell Distribution Width 17.4 % (13.2-15.2); White Blood Count 4.4 K/mm3 (4.5-11.0)
[2016-11-05 03:17] LABS: Mean Corpuscular Hemoglobin 24 pg (28-32)
[2016-11-05 03:21] LABS: INR 1.35 (0.87-1.13)
[2016-11-05 03:22] LABS: Anion Gap 17 mmol/L; BUN/Creatinine Ratio 13.33; Blood Urea Nitrogen 12 mg/dL (7-17); Calcium 8.4 mg/dL (8.4-10.2); Carbon Dioxide 26 mmol/L (22-30); Chloride 100.3 mmol/L (98-107); Glucose 105 mg/dL (65-100); Potassium 3.6 mmol/L (3.6-5.0); Sodium 140 mmol/L (137-145)
--- NOTE | 2016-11-05 08:06 | Discharge Summary ---
Providers - Providers Date of Admission: 11/03/16 15:24 Date of discharge: 11/05/16 Attending physician: BHAVANA BULLOCK MD 11/03/16 15:39 Consult to Physician [CONS] Routine Consulting Provider: SVETA DIEGO Reason For Exam: pt. known to you Place consult to:: Notified:: yes If yes, spoke with:: amador Time called:: 16:15 11/03/16 16:34 Consult to Physician [CONS] Routine Consulting Provider: ANJALI IYER Reason For Exam: critical care Place consult to:: Notified Dr. Elizondo Notified:: Yes Was contact made?: Yes Time called:: 16:36 11/03/16 19:09 Consult to Physician [CONS] Routine Consulting Provider: TIP BURCH Reason For Exam: HTN/PE Place consult to:: DR. BURCH Notified:: [facility] Phone number called:: [phone] Was contact made?: Yes If yes, spoke with:: LYLA Time called:: 08:32 Comment:: CONSULT COMPLETED - BEVEVERLY 11/04/16 09:13 Consult to Physician [CONS] Routine Consulting Provider: SYDNIE SORENSEN Reason For Exam: pulmonary embolus Place consult to:: DR. SORENSEN Notified:: DR. SORENSEN Was contact made?: Yes Time called:: 09:35 Comment:: COMPLETED Primary care physician: SVETA DIEGO Hospitalization Reason for admission: PE Pertinent studies: CT bilateral PE with right lung infarction Hospital course: Patient was admitted after she was found out to have bilateral PE on CTA. patient has hyeterectomy on 10/07/2016 and she presented with SOB and right sided back pain when she went for post operative check up. patient was admitted and treated with heparin drip and now changed to eliquis. patient is hemodynamically stable and will be discharged Eliquis. She was seen by security sergeant and will have follow-up as an outpatient for coagulation workup and results. Disposition: DISCHARGED TO HOME OR SELFCARE Time spent for discharge: 31 minutes - Discharge Diagnoses (1) Dyspnea on exertion Status: Acute (2) Pulmonary emboli Status: Acute Qualifiers: Pulmonary embolism type: other Acute cor pulmonale presence: without acute cor pulmonale (3) Fibroid uterus Status: Acute Core Measure Documentation - Palliative Care Palliative Care/ Comfort Measures: Not Applicable - Core Measures Any of the following diagnoses?: none Exam - Physical Exam Narrative exam: Not in cardiopulmonary distress. The patient appeared well nourished and normally developed. Vital signs as documented. Head exam is unremarkable. No scleral icterus . Neck is without jugular venous distension, thyromegaly, or carotid bruits. Lungs are clear to auscultation. Cardiac exam reveals regular rate and Rhythm. First and second heart sounds normal. No murmurs, rubs or gallops. Extremities are nonedematous and both femoral and pedal pulses are normal. TELETYPE ADJUSTER: Alert and oriented 3. No focal weakness. - Constitutional Vitals: Temp Pulse Resp BP Pulse Ox 98.3 F 82 20 120/79 100 11/05/16 04:16 11/05/16 04:16 11/05/16 04:16 11/05/16 04:16 11/05/16 04:16 Plan Diet: low cholesterol, low salt Follow up with: SVETA DIEGO MD [Primary Care Provider] - 7 Days SYDNIE SORENSEN MD [Staff Physician] - 10 Days Forms: Warfarin Discharge Instruction Prescriptions: Apixaban [Eliquis] 10 mg PO Q12HR #60 tablet HYDROcodone/APAP 5-325 [[place] 5/325] 1 each PO Q6HR PRN #12 tablet PRN Reason: Pain
[2016-11-05 08:48] VITALS: BP 110/72
[2016-11-05] MEDS: HCTZ PO SCH (09:51)
[2016-11-05] MEDS: ELIQUIS PO SCH (09:51)
[2016-11-05] MEDS: ZESTRIL PO SCH (09:52)
[2016-11-07 14:45] LABS: Protein S, Free 113 % normal (50-147); Protein S, Total 145 % (70-140)
[2016-11-07 22:43] LABS: PTT-LA 49 sec (<=40)
== END 2016-11-05 10:15 | disposition home or self-care (01) | DRG 176 ==
LOC: CT 13:13 → UNDOADMIN 15:14 → 3A 15:14 → UNDOADMIN 15:23 → CC1 15:24 → 2B-SURG 21:02
PROVIDERS: ADMIT Internal Medicine; ATTEND Internal Medicine
DX: I26.99 Other pulmonary embolism without acute cor pulmonale (principal); I10 Essential (primary) hypertension; E66.9 Obesity, unspecified; G89.29 Other chronic pain; E87.6 Hypokalemia; D50.9 Iron deficiency anemia, unspecified; R06.09 Other forms of dyspnea; N63 Unspecified lump in breast; Z90.710 Acquired absence of both cervix and uterus; Z98.890 Other specified postprocedural states; Z79.899 Other long term (current) drug therapy; Z90.722 Acquired absence of ovaries, bilateral; Z68.36 Body mass index [BMI] 36.0-36.9, adult
CPT/HCPCS: 36415; 71260; 80048; 80053; 82550; 82553; 83516; 83550; 84484; 85025; 85027; 85210; 85220; 85305; 85520; 85610; 85613; 85730; 90686; 93005; 93010; 93306; 93970; J1644; Q9967

== ENCOUNTER 2017-01-16 14:52 | Outpatient (CLI) | payer OTHER ==
--- NOTE | 2017-01-16 16:06 | Ultrasound Report ---
Bilateral mammogram and left breast ultrasound: The patient presents with incidental finding of a mass in her left breast on CT scan. Routine mammographic imaging demonstrates a smooth, elongated mass measuring 5.2 cm the in greatest dimension. This is located near the skin in the superior left breast. The remainder of the breast pattern is generally fatty replaced and otherwise unremarkable bilaterally. Ultrasound of the mass demonstrates a homogeneously hypoechoic and well demarcated mass with a maximum dimension of 4.4 cm located approximately 9 cm from the nipple near the skin. No internal flow by color imaging. Images of the axilla demonstrate 2 slightly enlarged lymph nodes noted measuring 12 and 15 mm. No suspicious characteristics. The patient presents with an outside disc with a mammogram obtained at 2015 demonstrating the same findings. CAD used. Impression: Stable left mass with characteristics consistent with benign fibroadenoma. Recommendation: Annual mammogram followup. BI-RADS CATEGORY: 2 = Benign ACR BI-RADS MAMMOGRAPHIC CODES: 0 = Needs additional imaging evaluation; 1 = Negative; 2 = Benign; 3 = Probably benign; 4 = Suspicious; 5 = Malignant; 6 = Known biopsy-proven malignancy COMMENT: 1. Dense breast tissue, i.e., adenosis, fibrocystic changes, etc., may obscure an underlying neoplasm. 2. Approximately 10% of cancers are not detected with mammography. 3. A negative mammography report should not delay biopsy if a clinically suspicious mass is present.
== END 2017-01-16 14:53 | disposition home or self-care (01) ==
LOC: SPVWC 14:52
PROVIDERS: ATTEND Internal Medicine Hematology & Oncology
DX: N63 Unspecified lump in breast (principal)
CPT/HCPCS: 76642; G0204; 77066

== ENCOUNTER 2017-08-28 08:22 | Outpatient (CLI) | payer OTHER ==
--- NOTE | 2017-08-28 09:38 | Mammography Report ---
LEFT DIGITAL DIAGNOSTIC MAMMOGRAM with CAD and LEFT BREAST ULTRASOUND: 08/28/17 08:22:00 CLINICAL: Followup left breast mass. COMPARISON:01/16/17 FINDINGS: The breast is mostly fatty. Stable relatively smooth oval circumscribed 5.5 cm mass at 12 o'clock. No new mass, architectural distortion or suspicious calcifications. Ultrasound of the left breast demonstrate a stable solid hypoechoic mass at 12 o'clock 9 cm from the nipple measuring 4.4 x 2.6 x 1.0 cm. Two left axillary lymph nodes are stable in size with central fat and benign morphology. IMPRESSION: Stable 4.4 cm left breast mass with characteristics typical of a benign fibroadenoma. By report it has been stable since 2015. BI-RADS CATEGORY: 2 -- Benign RECOMMENDATION: Return to routine mammographic screening. ACR BI-RADS MAMMOGRAPHIC CODES: 0 = Needs additional imaging evaluation; 1 = Negative; 2 = Benign; 3 = Probably benign; 4 = Suspicious; 5 = Malignant; 6 = Known biopsy-proven malignancy COMMENT: 1. Dense breast tissue, i.e., adenosis, fibrocystic changes, etc., may obscure an underlying neoplasm. 2. Approximately 10% of cancers are not detected with mammography. 3. A negative mammography report should not delay biopsy if a clinically suspicious mass is present. COMMENT: Patient follow-up letters are generated by our [employer] application.
== END 2017-08-28 08:23 | disposition home or self-care (01) ==
LOC: SPVWC 08:22
PROVIDERS: ATTEND Internal Medicine Hematology & Oncology
DX: N63.20 Unspecified lump in the left breast, unspecified quadrant (principal); D64.9 Anemia, unspecified; D68.69 Other thrombophilia
CPT/HCPCS: 76642; G0206

== ENCOUNTER 2018-03-19 08:40 | Outpatient (CLI) | payer OTHER ==
--- NOTE | 2018-03-19 10:22 | Mammography Report ---
Screening mammogram: Bilateral asymmetries are identified. There is a dominant circumscribed mass in the upper outer left breast. This has characteristics of a fibroadenoma and is evaluated prior mammogram in January 2017. The findings are unchanged bilaterally from the prior examination and no suspicious findings are noted. CAD used. Impression: Stable exam. Recommendation: Annual mammogram followup. BI-RADS CATEGORY: 2 = Benign ACR BI-RADS MAMMOGRAPHIC CODES: 0 = Needs additional imaging evaluation; 1 = Negative; 2 = Benign; 3 = Probably benign; 4 = Suspicious; 5 = Malignant; 6 = Known biopsy-proven malignancy COMMENT: 1. Dense breast tissue, i.e., adenosis, fibrocystic changes, etc., may obscure an underlying neoplasm. 2. Approximately 10% of cancers are not detected with mammography. 3. A negative mammography report should not delay biopsy if a clinically suspicious mass is present. The nasal
== END 2018-03-19 08:41 | disposition home or self-care (01) ==
LOC: SPVWC 08:40
PROVIDERS: ATTEND Internal Medicine Hematology & Oncology
DX: Z12.31 Encounter for screening mammogram for malignant neoplasm of breast (principal); I10 Essential (primary) hypertension; Z90.710 Acquired absence of both cervix and uterus; Z98.890 Other specified postprocedural states
CPT/HCPCS: 77067

== ENCOUNTER 2019-04-18 09:04 | Outpatient (CLI) | payer OTHER ==
--- NOTE | 2019-04-18 10:31 | Mammography Report ---
BILATERALDIGITAL SCREENING MAMMOGRAM WITH CAD INDICATION: Routine screening mammography. TECHNIQUE: Digital bilateral 2D mammography was obtained in the craniocaudal and mediolateral obliq ue projections. This examination was interpreted with the benefit of Computer-Aided Detection analysi s. COMPARISON: 03/19/2018 FINDINGS: Breast Density: The breasts are almost entirely fatty. There is no evidence of new mass, suspicious calcifications or architectural distortion in either br east. Stable oval circumscribed 4 cm left breast mass at 12:00. By reports it has been stable since 2 015. IMPRESSION: BI-RADS Category 2: Benign. No mammographic evidence of malignancy. Recommend routine screening ma mmography in one year. A "normal" or negative report should not discourage follow up or biopsy of a clinically significant f inding. A written summary of these findings will be mailed to the patient. The patient will be entered into a mammography reporting system which will generate a reminder letter for the patient's next appointmen t at the appropriate interval. The [employer] recommends yearly mammograms starting at age 40 and continuing as l aydee as a woman is in good health. Breast MRI is recommended for women with an approximate 20-25% or greater lifetime risk of breast cancer, including women with a strong family history of breast or ova avelina cancer or who have been treated for Hodgkin's disease. Signer Name: Miguel Ángel Butts MD Signed: 04/18/2019 10:27 AM Workstation Name: [id number]
== END 2019-04-18 09:05 | disposition home or self-care (01) ==
LOC: SPVWC 09:04
PROVIDERS: ATTEND Internal Medicine Hematology & Oncology
DX: Z12.31 Encounter for screening mammogram for malignant neoplasm of breast (principal); I10 Essential (primary) hypertension; Z90.710 Acquired absence of both cervix and uterus
CPT/HCPCS: 77067

== ENCOUNTER 2021-04-22 08:23 | Outpatient (CLI) | payer OTHER ==
--- NOTE | 2021-04-22 09:50 | Mammography Report ---
DIGITAL SCREENING MAMMOGRAM WITH CAD, 04/22/2021 CLINICAL INFORMATION / INDICATION: Routine screening mammography. SCREENING MAMMO Z12.31 TECHNIQUE: Digital bilateral 2D mammography was obtained in the craniocaudal and mediolateral obliqu e projections. This examination was interpreted with the benefit of Computer-Aided Detection analysis . COMPARISON: 01/16/2017 through 04/21/2020. FINDINGS: Breast Density: The breasts are almost entirely fatty. No dominant mass, suspicious calcifications, or architectural distortion in the right breast. There is a 4.7 cm ovoid circumscribed mass at the 12:00 position in the left breast in the middle dep th, unchanged over serial exams consistent with a benign etiology. No new abnormality is seen. IMPRESSION: No mammographic evidence of malignancy. Follow up recommendation: Routine yearly BI-RADS Category 2: Benign. A "normal" or negative report should not discourage follow up or biopsy of a clinically significant f inding. A written summary of these findings will be mailed to the patient. The patient will be entered into a mammography reporting system which will generate a reminder letter for the patient's next appointmen t at the appropriate interval. The [employer] recommends yearly mammograms starting at age 40 and continuing as l aydee as a woman is in good health. Breast MRI is recommended for women with an approximate 20-25% or greater lifetime risk of breast cancer, including women with a strong family history of breast or ova avelina cancer or who have been treated for Hodgkin's disease. Signer Name: Tay Goldman MD Signed: 04/22/2021 9:45 AM Workstation Name: [id number]
== END 2021-04-22 08:24 | disposition home or self-care (01) ==
LOC: SPVWC 08:23
PROVIDERS: ATTEND Internal Medicine Hematology & Oncology
DX: Z12.31 Encounter for screening mammogram for malignant neoplasm of breast (principal); D64.9 Anemia, unspecified; D68.69 Other thrombophilia
CPT/HCPCS: 77067